=== PATIENT | male | born 2005 | race Caucasian/White ===

== ENCOUNTER 2024-12-11 18:03 | Emergency (ER) | payer BC ==
[2024-12-11 18:15] VITALS: BP 126/81; PULSE 71
== END 2024-12-11 19:50 | disposition home or self-care (01) ==
LOC: JD.ED 18:03
DX: S61.412A Laceration without foreign body of left hand, initial encounter (principal); Z88.0 Allergy status to penicillin; W26.8XXA Contact with other sharp object(s), not elsewhere classified, initial encounter
CPT/HCPCS: 12002; 73130; 99283; J2003